=== PATIENT | male | born 1950 | race Caucasian/White ===

== ENCOUNTER 2019-05-26 08:12 | Outpatient (CLI) | payer BC ==
--- NOTE | 2019-05-26 13:03 | PET ---
PET SCAN WITH CT ATTENUATION CORRECTION: HISTORY: Abnormal CT. Left lung nodule. COMPARISON: None. CORRELATION: CT report from [facility] performed on 05/08/19. TECHNIQUE: PET scanning with CT attenuation correction is performed from the base of the brain to the proximal t highs following the intravenous administration of 10.9 mCi [id number]. FINDINGS: HEAD/NECK: No abnormal FDG localization. CHEST: There is an irregular marginated mass in the left upper lobe, corresponding to the outside CT report. Maximum SUV of this mass is 1.2. There is a peripheral nodule in the left lower lobe with a maximum SUV of 0.8. The left lower lobe nodule measures 0.9 cm. The left upper lobe mass measures 1.9 x 1.5 c m. ABDOMEN/PELVIS: No abnormal FDG localization. OSSEOUS STRUCTURES: There is increased FDG avidity involving the spinous process at C7. The maximum SUV is 3.1. There is increased FDG avidity involving the medial aspect of the left clavicle with a maximum SUV of 2.4. The re is increased FDG avidity, along with a destructive process and peripheral soft tissue involving th e distal left clavicle. This region has increased FDG avidity with a maximum SUV of 3.4. There is inc reased FDG avidity involving the anterior left second rib with a maximum SUV of 3.1. IMPRESSION: 1. Irregular marginated nodules in the left upper lobe. This nodule does not have any significant FD G avidity. There is a nodule in the left lower lobe that is also not FDG avid. 2. There is evidence of multifocal osseous hypermetabolic activity, worrisome for a metastatic proce ss until proven otherwise. The lesion in the distal aspect of the left clavicle may be amenable to pe rcutaneous biopsy with CT guidance. POS: JENNIFER
== END 2019-05-26 08:13 | disposition home or self-care (01) ==
LOC: PET 08:12
PROVIDERS: ATTEND Internal Medicine Pulmonary Disease
DX: R91.8 Other nonspecific abnormal finding of lung field (principal); R93.7 Abnormal findings on diagnostic imaging of other parts of musculoskeletal system
CPT/HCPCS: 78815; A9552